=== PATIENT | male | born 1960 | race African-American/Black ===

== ENCOUNTER 2020-01-03 20:55 | Inpatient (IN) | payer SELFPAY ==
[~2020-01-03] VITALS: Ht 180.3 cm; Wt 90.7 kg
[2020-01-03 21:01] VITALS: Ht 180.3 cm; Wt 90.7 kg
--- NOTE | 2020-01-03 21:30 | NUR ---
P[T BROUGHT IN VIA [facility]. PT PICKED UP AT A [facility]STOP CALLED 911 BECAUSE HE HAD A SUDDEN ONSET OF [place] INITIAL 120 AND DOWN TO 66. HE THEN BEGAN TO COMPLAIN OF CRUSHING CHEST PAIN. PT WAS GIVEN AN ASPRIN AND 1 SPRAY ON NTG. HE STATES HE HAD A CARDIAC ABLATION 2YEARS AGO. HE TAKES METOPROLOL AND Has AND ALLERGY TO CODIENE AND TORADOL.
--- NOTE | 2020-01-03 22:05 | NUR ---
PT IS A VERY DIFFICULT STICK FOR AN IV. STATESD TO HAVE RT DO AN ARTERIAL STICK AND WE COULD GET THE NECESSARY LABS FROM THE STICK. PT REMAINS VERY APPREHENSIVE ABOUT GETTING A NEEDLE STICK. PT HAS A LOT OF SCAR TISSUE AND THE FIRST IV RENDERED A GOODFLASH , BUT UNABLE TO ADVANCE. PT IS ARGUING WITH THE [employer] ABOUT THE ARTERIAL STICK.
--- NOTE | 2020-01-03 22:30 | NUR ---
PT IS REFUSING TO HAVE ATERIAL BLOOD DRAW DONE FOR LABS. PT ASKED TO SPEAK TO THE CHARGE NURSE AND WHEN I TOLD PATIENT I WAS IN CHARGE HE STATES "YOU REALLY WANT ME TO CUSS YOU OUT DONT YOU". TOLD PATIENT THAT HE COULD IF HE LIKE BUT WE STILL NEED TO GET LABS IN ORDER TO HELP HIM. PT STATES "I DONT WANT TO BE POKED ANY MORE I WANT TO TALK TO MY SISTER". PRIMARY NURSE ALBAN INFORMED.
--- NOTE | 2020-01-03 23:10 | NUR ---
PATIENTS BLOOD DRAWN FROM THE LEFT HAND. BLOOD IS VERY THICK AND FLOWS SLOWLY. PT STATES HE DRINK ALOT OF WATER TODAY AND CRANBERRY JUICE.
[2020-01-03 23:11] LABS: BASOPHIL % 0.2 % (0-2); PLATELET COUNT 173 x10^3mcL (130-400); RED CELL DISTRIBUTION WIDTH 13.5 % (11.5-14.5)
[2020-01-03 23:25] LABS: CALCIUM 9.4 mg/dL (8.5-10.1); CARBON DIOXIDE 27.3 mmol/L (21-32); CREATININE SERUM 1.4 mg/dL (0.7-1.3); POTASSIUM SERUM 3.5 mmol/L (3.5-5.1)
[2020-01-03 23:32] LABS: ALBUMIN 3.8 g/dL (3.4-5.0); BILIRUBIN TOTAL 0.7 mg/dL (0.20-1.00); MAGNESIUM 2.1 mg/dL (1.8-2.4); TOTAL PROTEIN, SERUM 6.9 g/dL (6.4-8.2)
[2020-01-03 23:43] LABS: FREE T4 1.31 ng/dL (0.76-1.46); FREE THYROXINE INDEX 2.9 ug/dL (1.4-4.5); T4(THYROXINE) 8.4 ug/dL (4.7-13.3)
--- NOTE | 2020-01-03 23:53 | NUR ---
PT'S BLE ARE VERY EDEMATOUS WITH WEEPING BLOOD AND SCABS. UNABLE TO OBTAIN PICTURES TYHE CAMERA NOT AVAILABLE IN THE ER. PT COMPLAINS OF PAIN 8/10 NOW. SHE SAID SHE DIDN'T HAVE PAIN EARLIER BECAUSE SHE HAD TAKEN A NORCO BEFORE SHE LEFT HOME AND IT WORE OFF AT ABOUT 2100.. SHE RECEIVED 2MG MORPHINE AND 4MG ZOFRAN IVP.
[2020-01-04 00:22] LABS: T3 TOTAL 1.54 ng/mL
[2020-01-04 00:52] LABS: AMPHETAMINE QUAL UR POSITIVE (See below)
--- NOTE | 2020-01-04 01:35 | NUR ---
PT IS AWAKE AND AAOX4, NAD NOTED. PT ON FULL CM, VSS. MD VERNON AT BEDSIDE DISCUSSING POC AT THIS TIME. WILL CONTINUE TO MONITOR PT.
--- NOTE | 2020-01-04 06:09 | NUR ---
PT IS ADMITTED BUT NO BED IS AVAILABLE SO HE'S ON HOLD IN [facility] ED.
--- NOTE | 2020-01-04 07:14 | NUR ---
REPORT RECEIVED FROM MARAH PHOENIX FOR CONTINUITY OF CARE. PATIENT IN STABLE CONDITION. VITAL SIGNS STABLE. WILL CONTINUE TO MONITOR.
[2020-01-04] MEDS ORDERED: LOPRESSOR100 M1 PO (08:42)
[2020-01-04] MEDS ORDERED: GRALISE600 MG PO (08:43)
--- NOTE | 2020-01-04 08:45 | NUR ---
EDUCATED PATIENT ON URINATING IN URINAL. PATIENT EXPLAINED HE "DOES NOT HAVE TO GO AT THE MOMENT." WILL CHECK AGAIN.
--- NOTE | 2020-01-04 09:02 | NUR ---
PATIENT IN STABLE CONDITION. NO DISTRESS NOTED.
--- NOTE | 2020-01-04 10:32 | NUR ---
Patient expressed, "I don't want to be in the hospital anymore." Educated patient on benefits of staying in the hospital for monitoring. Patient still wants to leave. Patient explained, "I ain't signing no papers." Explained that the DrGarrick would have to talk to patient before patient leaves.
--- NOTE | 2020-01-04 10:40 | NUR ---
PATIENT DRESSED IN HIS CLOTHES AND LEFT THE HOSPITAL. DR. RUBIO . NOTIFIED OF PATIENT ELOPEMENT.
[2020-01-04 10:50] VITALS: BP 140/78
== END 2020-01-04 10:51 | disposition left against medical advice (07) | DRG 206 ==
LOC: ED 20:55 → DU 01-04 02:37
PROVIDERS: Emergency Medicine; ADMIT Internal Medicine; ATTEND Internal Medicine
DX: M94.0 Chondrocostal junction syndrome [Tietze] (principal); N17.9 Acute kidney failure, unspecified; F17.210 Nicotine dependence, cigarettes, uncomplicated; F15.90 Other stimulant use, unspecified, uncomplicated; E05.80 Other thyrotoxicosis without thyrotoxic crisis or storm; Z88.8 Allergy status to other drugs, medicaments and biological substances; Z88.5 Allergy status to narcotic agent
CPT/HCPCS: 84439; G0378; J1644; J2405; J3010; J7030; Q0092